=== PATIENT | male | born 1995 | race Caucasian/White ===

== ENCOUNTER 2017-03-05 19:44 | Emergency (ER) | payer SELFPAY ==
[~2017-03-05] VITALS: Ht 175.3 cm; Wt 88.5 kg
[2017-03-05 19:45] VITALS: BP 111/78
[2017-03-05] MEDS ORDERED: ORPHENADRINE CITRATE 60 MG/2 ML VIAL. IM ONE (20:00)
[2017-03-05] MEDS ORDERED: KETOROLAC 60 MG/2 ML VIAL. IM ONE (20:00)
[2017-03-05] MEDS ORDERED: CYCL5TAB PO (20:11)
[2017-03-05] MEDS ORDERED: NAPR375T3 PO (20:11)
--- NOTE | 2017-03-05 20:12 | PHYS DOC ---
Adult General Chief Complaint Chief Complaint: BACK PAIN OR INJURY HPI HPI Patient is a 21-year-old male who has been experiencing some mild low back pain for a couple days, he was doing laundry today and sneeze strongly and then had sudden onset of low back pain and muscle spasm. No direct trauma. Patient denies any fevers, chills, vomiting, retention or incontinence. No signs to. Pain is worse with movement or palpation. Review of Systems Review of Systems Constitutional: Denies fever or chills [] HENT: Denies nasal congestion or sore throat [] Respiratory: Denies cough or shortness of breath [] Cardiovascular: No chest pain GI: Denies abdominal pain, nausea, vomiting, incontinence : Incontinence or retention Musculoskeletal: Bilateral low back pain Integument: Denies rash or skin lesions [] Neurologic: Denies headache, focal weakness or sensory changes [] Physical Exam Physical Exam Constitutional: Well developed, well nourished, no acute distress, non-toxic appearance. [] HENT: Normocephalic, atraumatic, Eyes: EOMI, conjunctiva normal, no discharge. [] Neck: Normal range of motion, trachea midline] Cardiovascular: Normal perfusion, no signs of vascular insufficiency Lungs & Thorax: No tachypnea Abdomen: Bowel sounds normal, soft, no tenderness, Skin: Warm, dry, no erythema, no rash. [] Back: Diffuse tenderness to palpation in the low back with associated muscle spasm. Spine with normal alignment, no step-offs, no midline tenderness to palpation Extremities: No tenderness, ROM intact but limited in the lower extremity secondary to pain, no edema. Patient experiences the low back pain discomfort with active movement but that is markedly decreased or near sero-with passive movement of the lower extremities Neurologic: Alert and oriented X 3, normal motor function, normal gross sensory function, no focal deficits noted. [] Psychologic: Affect normal, judgement normal, mood normal. [] EKG EKG [] Radiology/Procedures Radiology/Procedures [] Course & Med Decision Making Course & Med Decision Making Pertinent Labs and Imaging studies reviewed. (See chart for details) Given the story and the lack of direct trauma, the edition the patient and the physical exam I do not believe that the time of this ED evaluation the patient is in need for imaging or inpatient evaluation. Patient is stable for outpatient treatment and follow-up. [] Dragon Disclaimer Dragon Disclaimer This chart was dictated in whole or in part using Voice Recognition software in a busy, high-work load, and often noisy Emergency Department environment. It may contain unintended and wholly unrecognized errors or omissions. Departure Departure: Impression: Primary Impression: Back pain Additional Impression: Spasm of back muscles Referrals: UNKNOWN (PCP) Patient Instructions: Back Pain, Adult Additional Instructions: Please follow-up with your doctor or one of the clinics in the list provided to you for recheck and reevaluation in 2-3 days. If your symptoms worsen or develop any new concerning symptoms (for example retention, incontinence, paralysis, weakness, numbness) please return to the ED immediately. Scripts Cyclobenzaprine Hcl (CYCLOBENZAPRINE HCL) 5 Mg Tablet 1 TAB PO TID for 5 Days, #15 TAB Prov: Karma QUINTANA MD 03/05/17 Naproxen (NAPROXEN) 375 Mg Tablet 1 TAB PO BID, #15 TAB 0 Refills Prov: Karma QUINTANA MD 03/05/17 Problem Qualifiers Karma QUINTANA MD Mar 05, 2017 20:12
== END 2017-03-05 20:30 | disposition home or self-care (01) ==
LOC: ER 19:44
DX: M54.5 Low back pain (principal); M62.830 Muscle spasm of back
CPT/HCPCS: 96372; 99284; J1885; J2360

== ENCOUNTER 2020-05-10 14:17 | Emergency (ER) | payer OTHER ==
[~2020-05-10] VITALS: Ht 175.3 cm; Wt 78.1 kg
[~2020-05-10 14:17] MED LIST: CYCL5TAB PO; NAPR-695 PO
[2020-05-10] MEDS ORDERED: HYDR30CR74 TP (15:28)
[2020-05-10] MEDS ORDERED: DIPH25CA58 PO (15:28)
[2020-05-10] MEDS ORDERED: PRED-220 PO (15:28)
--- NOTE | 2020-05-10 15:29 | PHYS DOC ---
Past History Past Medical History: No Pertinent History Past Surgical History: Other Additional Past Surgical Histo: WISDOM TOOTH; TUBES BILAT EARS Alcohol Use: Occasionally Drug Use: None General Adult EDM: Chief Complaint: SKIN RASH/ABSCESS HPI: HPI: 25 yo M who denies any significant past medical history presents the ED with complaints of pruritic rash on his left forearm going up to his arm, left lower chest and right antecubital fossa that started on Sunday after patient was outside cutting down trees, no relief with calamine lotion or benadryl. Unsure if he came in contact with poison ivory. No h/o anaphylaxis or angioedema. NKDA. Review of Systems: Review of Systems: Constitutional: Denies fever or chills Eyes: Denies change in visual acuity HENT: Denies nasal congestion or sore throat Respiratory: Denies cough or shortness of breath Cardiovascular: Denies chest pain or edema GI: Denies abdominal pain, nausea, vomiting, bloody stools or diarrhea : Denies dysuria Musculoskeletal: Denies back pain or joint pain Integument: Denies rash in mucous membranes Neurologic: Denies headache, focal weakness or sensory changes Endocrine: Denies polyuria or polydipsia Lymphatic: Denies swollen glands Psychiatric: Denies depression or anxiety Heart Score: Risk Factors: Risk Factors: DM, Current or recent (<one month) smoker, HTN, HLP, family history of CAD, obesity. Risk Scores: Score 0 - 3: 2.5% MACE over next 6 weeks - Discharge Home Score 4 - 6: 20.3% MACE over next 6 weeks - Admit for Clinical Observation Score 7 - 10: 72.7% MACE over next 6 weeks - Early Invasive Strategies Allergies: Allergies: Allergies Coded Allergies Type Severity Reaction Last Updated Verified No Known Drug Allergies 05/10/20 No Physical Exam: PE: Constitutional: Well developed, well nourished, no acute distress, non-toxic appearance. [] HENT: Normocephalic, atraumatic, bilateral external ears normal, oropharynx moist, no oral exudates, nose normal. []mallampati 1, no angioedema Eyes: EOMI, conjunctiva normal, no discharge. [] Neck: Normal range of motion, supple, no stridor. [] Cardiovascular:Heart rate regular rhythm, no murmur [] Lungs & Thorax: Bilateral breath sounds clear to auscultation [] Abdomen: Bowel sounds normal, soft, no tenderness, no masses, no pulsatile masses. [] Skin: Warm, dry, no erythema, excoriated erythematous prickly rash (no vesicles) over left forearm and right ac, similar rash over luq of abdomen Back: No tenderness, no CVA tenderness. [] Extremities: No tenderness, no cyanosis, no clubbing, ROM intact, no edema. [] Neurologic: Alert and oriented X 3, normal motor function, normal sensory fun ction, no focal deficits noted. [] Psychologic: Affect normal, judgement normal, mood normal. [] Current Patient Data: Vital Signs: Vital Signs Date Time Temp Pulse Resp B/P (MAP) Pulse Ox O2 Delivery O2 Flow Rate FiO2 05/10/20 14:30 98.2 86 18 108/77 (87) 98 Room Air EKG: EKG: [] Radiology/Procedures: Radiology/Procedures: [] Course & Med Decision Making: Course & Med Decision Making Pertinent Labs and Imaging studies reviewed. (See chart for details) Concern for contact dermatitis, likely poison ivory/oak exposure. Discouraged scratching/topical alcohol, but given the excoriation, will prescribe keflex, oral and topical steroids. Encouraged to continue antihistamines, calamine lotion, oatmeal baths. Strict ed return precautions for head/neck swelling, difficulties breathing, worsening rash or fever. Encouraged urgent outpatient follow-up with PMD. Life-threatening processes were considered but are low suspicion at this time, given history and physical exam. Pt was educated on all prescription medications and adverse effects. All patient's questions were answered and pt was stable at time of discharge. Life/limb-threatening differential includes but is not limited to, erythema multiforme, white-kaushik syndrome, toxic epidermal necrolysis, staphylococcal scalded skin syndrome, necrotizing fasciitis/myositis/cellulitis, purpura fulminans, heparin or warfarin induced skin necrosis, drug rash, disseminated intravascular coagulation, disseminated gonococcal disease, vasculitis, septicemia, petechial disorder or coagulopathy, viral exanthem, Kawasaki's disease. I spoken with the patient and her caregivers. I explained the patient's condition, diagnoses and treatment plan based on the information available to me at this time. I have answered the patient and her caregiver's questions and addressed any concerns. The patient and her caregivers have a good understanding of patient's diagnosis, condition and treatment plan as can be expected at this point. Vital signs have been stable. Patient's condition is stable and appropriate for discharge from the emergency department. Patient will pursue further outpatient evaluation with primary care physician or other designated or consulting physician as outlined in the discharge in structions. The patient and/or caregivers are agreeable to this plan of care and follow-up instructions have been explained in detail. The patient and/or caregivers have received these instructions in written form and have expressed an understanding of the discharge instructions. The patient and/or caregivers are aware that any significant change of condition or worsening of symptoms should prompt immediate return to this or the closest emergency department or call to 911. Ricardo Disclaimer: Ricardo Disclaimer: This electronic medical record was generated, in whole or in part, using a voice recognition dictation system. Departure Departure: Impression: Primary Impression: Rash Additional Impression: Contact dermatitis Disposition: HOME/RESIDENCE PRIOR TO ADM Condition: STABLE Referrals: JEREMY DORANTES (PCP) Patient Instructions: Contact Dermatitis, Poison Ivory, Rash Additional Instructions: EMERGENCY DEPARTMENT GENERAL DISCHARGE INSTRUCTIONS Thank you for coming to [facility] (ED) today and trusting us with you care. We trust that you had a positivie experience in our Emergency Department. If you wish to speak to the department management, you may call the director at [phone]. YOUR FOLLOW UP INSTRUCTIONS ARE FOLLOWS: 1. Do you have a private Doctor? If you do not have a private doctor, please ask for a resource list of physicians or clinics that may be able to assist you with follow up care. 2. The Emergency Physician has interpreted your x-rays. The X-Ray specialist will also review them. If there is a change in the findings, you will be notified in 48 hours when at all possible. 3. A lab test or culture has been done, your results will be reviewed and you will be notified if you need a change in treatment. ADDITIONAL INSTRUCTIONS AND INFORMATION: 1. Your care today has been supervised by a physician who is specially trained in emergency care. Many problems require more than one evaluation for a complete diagnosis and treatment. We recommend that you schedule your follow up appointment as recommended to ensure complete treatment of you illness or injury. If you are unable to obtain follow up care and continue to have a problem, or if your condition worsens, we recommend that you return to the ED. 2. We are not able to safely determine your condition over the phone nor are we able to give sound medical advice over the phone. For these safety reasons, if you call for medical advice we will ask you to come to the ED for further evaluation. 3. If you have any questions regarding these discharge instructions please call the ED at [phone]. SAFETY INFORMATION: In the interest of safety, wellness, and injury prevention; we encourage you to wear your sealbelt, if you smoke; quite smoking, and we encourage family to use a protective helmet for bicycling and other sporting events that present an increased risk for head injury. IF YOUR SYMPTOMS WORSEN OR NEW SYMPTOMS DEVELOP, OR YOU HAVE CONCERNS ABOUT YOUR CONDITION; OR IF YOUR CONDITION WORSENS WHILE YOU ARE WAITING FOR YOUR FOLLOW UP APPOINTMENT; EITHER CONTACT YOUR PRIMARY CARE DOCTOR, THE PHYSICIAN WHOSE NAME AND NUMBER YOU WERE GIVEN, OR RETURN TO THE ED IMMEDIATELY. Scripts Hydrocortisone (Hydrocortisone) 30 Gm Cream.appl 1 DAMARIS TP QID for itching for 7 Days, #30 GM 0 Refills Prov: DEBRA EDEN DO 05/10/20 Prednisone (PREDNISONE) 10 Mg Tablet 40 MG PO DAILY for contact dermatitis for 5 Days, #20 TAB 12 day taper: Take 4 tablets daily for 4 days, then take 3 tablets daily for 4 days, then take 2 tablets daily for 4 days and then take 1 tablet daily for 4 days Prov: DEBRA EDEN DO 05/10/20 Diphenhydramine Hcl (BENADRYL) 25 Mg Capsule 25 MG PO QID for itching for 5 Days, #20 CAP Prov: DEBRA EDEN DO 05/10/20 DEBRA EDEN DO May 10, 2020 15:28
[2020-05-10 15:38] VITALS: BP 114/66
== END 2020-05-10 15:37 | disposition home or self-care (01) ==
LOC: ER 14:17
DX: L25.9 Unspecified contact dermatitis, unspecified cause (principal)
CPT/HCPCS: 99283

== ENCOUNTER 2020-09-14 11:29 | Emergency (ER) | payer OTHER ==
[~2020-09-14] VITALS: Ht 175.3 cm; Wt 79.5 kg
[~2020-09-14 11:29] MED LIST changes: +DIPH25CA58 PO; +HYDR30CR74 TP; +PRED-220 PO
[2020-09-14 11:34] VITALS: BP 135/74
--- NOTE | 2020-09-14 12:38 | RAD ---
Study: XR LUMBAR SPINE 2-3V Indication: Low back pain. Comparison: 02/08/2012 Findings: Transitional lumbosacral anatomy. For the purposes of this report, the last disc space is designated S1-S2. Mild lumbar levocurvature with the apex at L4. Mild disc space narrowing at L4-L5 has not appreciably changed since 2011. No newly seen vertebral body height loss or malalignment. No advanced facet arth rosis. Impression: 1. Transitional lumbosacral anatomy as outlined above. 2. Redemonstrated and not significantly changed mild disc space narrowing at L4-L5. No acute radiogra phic abnormality of the lumbar spine. Electronically signed by: ADELINE MYLES MD (09/14/2020 12:36 PM) [id number]
[2020-09-14] MEDS ORDERED: NAPR-682 PO (13:34)
--- NOTE | 2020-09-14 13:34 | PHYS DOC ---
Past History Past Medical History: No Pertinent History Past Surgical History: Tonsillectomy, Other Additional Past Surgical Histo: WISDOM TOOTH; TUBES BILAT EARS Alcohol Use: Occasionally Drug Use: None General Adult EDM: Chief Complaint: BACK PAIN OR INJURY HPI: HPI: Patient is a 25 year old male with history of lower back problem, presented with lower back pain after he was doing some exercise routine this morning. He denied any bowel or bladder incontinence. He denied any weakness or numbness in the lower extremities. Back pain is worse with flexion or extension of the lower back. Review of Systems: Review of Systems: Constitutional: Denies fever or chills Eyes: Denies change in visual acuity HENT: Denies nasal congestion or sore throat Respiratory: Denies cough or shortness of breath Cardiovascular: Denies chest pain or edema GI: Denies abdominal pain, nausea, vomiting, bloody stools or diarrhea : Denies dysuria Musculoskeletal: Positive for lower back pain Integument: Denies rash Neurologic: Denies headache, focal weakness or sensory changes Endocrine: Denies polyuria or polydipsia Lymphatic: Denies swollen glands Psychiatric: Denies depression or anxiety Current Medications: Current Meds: Current Medications Medications (Trade) Dose Ordered Sig/Denise Start Time Stop Time Status Last Admin Dose Admin Ketorolac Tromethamine (Toradol Im) 60 mg 1X ONCE 09/14/20 13:30 09/14/20 13:31 UNV Orphenadrine Citrate (Norflex) 60 mg 1X ONCE 09/14/20 13:30 09/14/20 13:31 UNV Allergies: Allergies: Allergies Coded Allergies Type Severity Reaction Last Updated Verified No Known Drug Allergies 05/10/20 No Physical Exam: PE: Constitutional: Well developed, well nourished, no acute distress, non-toxic appearance. [] HENT: Normocephalic, atraumatic, bilateral external ears normal, oropharynx moist, no oral exudates, nose normal. [] Eyes: PERRLA, EOMI, conjunctiva normal, no discharge. [] Neck: Normal range of motion, no tenderness, supple, no stridor. [] Cardiovascular:Heart rate regular rhythm, no murmur [] Lungs & Thorax: Bilateral breath sounds clear to auscultation [] Abdomen: Bowel sounds normal, soft, no tenderness, no masses, no pulsatile masses. [] Skin: Warm, dry, no erythema, no rash. [] Back: No tenderness, no CVA tenderness. [] Extremities: No tenderness, no cyanosis, no clubbing, ROM intact, no edema. [] Neurologic: Alert and oriented X 3, normal motor function, normal sensory function, no focal deficits noted. [] Psychologic: Affect normal, judgement normal, mood normal. [] Current Patient Data: Vital Signs: Vital Signs Date Time Temp Pulse Resp B/P (MAP) Pulse Ox O2 Delivery O2 Flow Rate FiO2 09/14/20 11:34 97.9 97 16 135/74 (94 97 Room Air EKG: EKG: [] Radiology/Procedures: Radiology/Procedures: [][place] [address] IMAGING REPORT Signed PATIENT: KELBY SPENCE AACCOUNT: [id number] : 1995 LOCATION: ER AGE: 25 SEX: M EXAM STATUS: PRE ER ORD. PHYSICIAN: ANASTASIA MAJANO DO REASON: lower back pain, injury during PT today PROCEDURE: LUMBAR SPINE 2-3V Study: XR LUMBAR SPINE 2-3V Indication: Low back pain. Comparison: 02/08/2012 Findings: Transitional lumbosacral anatomy. For the purposes of this report, the last disc space is designated S1-S2. Mild lumbar levocurvature with the apex at L4. Mild disc space narrowing at L4- L5 has not appreciably changed since 2011. No newly seen vertebral body height loss or malalignment. No advanced facet arthrosis. Impression: 1. Transitional lumbosacral anatomy as outlined above. 2. Redemonstrated and not significantly changed mild disc space narrowing at L4- L5. No acute radiographic abnormality of the lumbar spine. Electronically signed by: ADELINE MYLES MD (09/14/2020 12:36 PM) [id number] DICTATED AND SIGNED BY: ADELINE MYLES MD DATE: 09/14/20 1233 CC: PCP,UNKNOWN; ANASTASIA MAJANO DO ~MTH0 0 Heart Score: Risk Factors: Risk Factors: DM, Current or recent (<one month) smoker, HTN, HLP, family histo ry of CAD, obesity. Risk Scores: Score 0 - 3: 2.5% MACE over next 6 weeks - Discharge Home Score 4 - 6: 20.3% MACE over next 6 weeks - Admit for Clinical Observation Score 7 - 10: 72.7% MACE over next 6 weeks - Early Invasive Strategies Course & Med Decision Making: Course & Med Decision Making Pertinent Labs and Imaging studies reviewed. (See chart for details) xray of lumbar spine did not show any acute injury. Patient was able to get up to the bathroom without any problem. Will discharge him home with NSAIDS and muscle relaxer, told to follow up with PCP for MRI of lower back if he continues to have problem. Dragon Disclaimer: [facility] Disclaimer: This electronic medical record was generated, in whole or in part, using a voice recognition dictation system. Departure Departure: Impression: Primary Impression: Lower back pain Disposition: 01 DC HOME SELF CARE/HOMELESS Condition: STABLE Referrals: PCP,UNKNOWN (PCP) Follow up with your doctor as needed next week Patient Instructions: Back Pain, Adult Additional Instructions: Thank you for visiting our Emergency Department. We appreciate you trusting us with your care. If any additional problems come up don't hesitate to return to visit us. Please follow up with your primary care provider so they can plan additional care if needed and know about the problem that you had. If symptoms worsen come back to the Emergency Department. Any concerning symptoms that start such as chest pain, shortness of air, weakness or numbness on one side of the body, running high fevers or any other concerning symptoms return to the ER. Scripts Cyclobenzaprine Hcl (CYCLOBENZAPRINE HCL) 10 Mg Tablet 1 TAB PO TID PRN for MUSCLE SPASMS, #15 TAB Prov: ANASTASIA MAJANO DO 09/14/20 Naproxen Sodium (ANAPROX DS) 550 Mg Tablet 1 TAB PO BID PRN for PAIN for 15 Days, #30 TAB 0 Refills Prov: ANASTASIA MAJANO DO 09/14/20 ANASTASIA MAJANO DO Sep 14, 2020 13:34
[2020-09-14] MEDS ORDERED: CYCL-331 PO (13:38)
[2020-09-14] MEDS ORDERED: ORPHENADRINE CITRATE 60 MG/2 ML VIAL. IM ONE (13:45)
[2020-09-14] MEDS ORDERED: KETOROLAC 60 MG/2 ML VIAL. IM ONE (13:45)
== END 2020-09-14 13:49 | disposition home or self-care (01) ==
LOC: ER 11:29
DX: M54.5 Low back pain (principal)
CPT/HCPCS: 72100; 96372; 99284; J1885; J2360

== ENCOUNTER 2021-03-31 11:02 | Emergency (ER) | payer OTHER ==
[~2021-03-31] VITALS: Ht 175.3 cm; Wt 79.5 kg
[~2021-03-31 11:02] MED LIST changes: +CYCL-331 PO; +NAPR-682 PO
[2021-03-31 11:43] VITALS: BP 123/81
--- NOTE | 2021-03-31 12:31 | RAD ---
EXAM: Left foot, 3 views. HISTORY: Second toe injury. COMPARISON: None. FINDINGS: 3 views of the left foot are obtained. There is no acute fracture, dislocation or subluxati on. There is a tiny ossicle or calcification adjacent to the distal aspect of the first proximal phal anx. IMPRESSION: No acute osseous finding. Electronically signed by: Ellen Bradford MD (03/31/2021 12:29 PM) [id number]
--- NOTE | 2021-03-31 12:41 | PHYS DOC ---
Past History Past Medical History: No Pertinent History (TAMMY DELEON APRN) Past Surgical History: Tonsillectomy, Other Additional Past Surgical Histo: WISDOM TOOTH; TUBES BILAT EARS (TAMMY DELEON APRN) Alcohol Use: Occasionally Drug Use: None (TAMMY DELEON APRN) Adult General Chief Complaint Chief Complaint: TOE PROBLEM [facility] HPI Patient is a 25-year-old patient presents with left toe pain. Patient reports he has been on the boat 2 days ago, when he had slipped on the rear part of that, with his toes hyper extending and concerned and discomfort in his toes following that. States he noticed bruising this morning. He became concerned and came to the emergency room for evaluation. States he has been walking on it, however has had some discomfort anytime he takes steps. He has not take any medications for this at all. Denies any paresthesia. Denies any additional complaints (TAMMY DELEON APRN) Review of Systems Review of Systems Constitutional: Denies fever or chills [] Cardiovascular: No additional information not addressed in HPI [] Musculoskeletal: Denies back pain or joint pain [] complains of pain to left foot, second and third digit. Integument: Denies rash or skin lesions [] states bruising to base of left foot, second and third toe Neurologic: Denies headache, focal weakness or sensory changes [] denies any paresthesias All other systems were reviewed and found to be within normal limits, except as documented in this note. (TAMMY DELEON APRN) Allergies Allergies Allergies Coded Allergies Type Severity Reaction Last Updated Verified No Known Drug Allergies 05/10/20 No (TAMMY DELEON APRN) Physical Exam Physical Exam Constitutional: Well developed, well nourished, no acute distress, non-toxic appearance. [] Skin: Warm, dry, no erythema, no rash. [] Minimal bruising noted to base of second and third digit, left foot Extremities: No tenderness, no cyanosis, no clubbing, ROM intact, no edema. [] Full range of motion noted to toes, brisk capillary refill. Sensation intact to toes. Full range of motion to ankle. Neurologic: Alert and oriented X 3, normal motor function, normal sensory function, no focal deficits noted. [] Psychologic: Affect normal, judgement normal, mood normal. [] (TAMMY DELEON APRN) Current Patient Data Vital Signs Vital Signs Date Time Temp Pulse Resp B/P (MAP) Pulse Ox O2 Delivery O2 Flow Rate FiO2 03/31/21 11:43 98.3 71 14 123/81 97 Room Air (TAMMY DELEON APRN) EKG EKG [] (TAMMY DELEON APRN) Radiology/Procedures Radiology/Procedures PATIENT: KELBY SPENCE AACCOUNT: [id number]#: [id number] : 1995 LOCATION: ER AGE: 25 SEX: M EXAM STATUS: PRE ER ORD. PHYSICIAN: LILLIE HAYDEN DO REASON: 2nd digit injury left foot. PROCEDURE: FOOT LEFT 3V EXAM: Left foot, 3 views. HISTORY: Second toe injury. COMPARISON: None. FINDINGS: 3 views of the left foot are obtained. There is no acute fracture, dislocation or subluxation. There is a tiny ossicle or calcification adjacent to the distal aspect of the first proximal phalanx. IMPRESSION: No acute osseous finding. Electronically signed by: Ellen Heredia MD (03/31/2021 12:29 PM) [id number] DICTATED AND SIGNED BY: ELLEN HEREDIA MD DATE: 03/31/21 1228 CC: LILLIE HAYDEN DO; JEREMY DORANTES ~MTH0 0 [] (TAMMY DELEON APRN) Heart Score C/O Chest Pain: N/A Risk Factors: Risk Factors: DM, Current or recent (<one month) smoker, HTN, HLP, family history of CAD, obesity. Risk Scores: Risk Factors: DM, Current or recent (<one month) smoker, HTN, HLP, family history of CAD, obesity. (TAMMY DELEON APRN) Course & Med Decision Making Course & Med Decision Making Pertinent Labs and Imaging studies reviewed. (See chart for details) [] Given imaging results, likely hyperextension of toe, causing the bruising. No fracture noted. Will recommend a postop shoe or similar, continued NSAIDs. Patient with full range of motion, no acute fracture noted at this time. Will recommend follow-up primary as needed. Patient does report he has a hard soled shoe at home he will wear (TAMMY DELEON APRN) Course & Med Decision Making I was the Attending physician on the above date of service of this patient. This patient was evaluated, examined, treated, and dispositioned from the emergency department by the mid-level practitioner. Although I was working at the time , no assistance was requested. Electronically signed, Lillie Hayden DO (LILLIE HAYDEN DO) Ricardo Disclaimer Dragon Disclaimer This electronic medical record was generated, in whole or in part, using a voice recognition dictation system. (TAMMY DELEON APRN) Departure Departure: Impression: Primary Impression: Contusion of left foot including toes Disposition: HOME / SELF CARE / HOMELESS Condition: GOOD Referrals: JEREMY DORANTES (PCP) Patient Instructions: Foot Contusion Additional Instructions: As discussed, you may take Tylenol or ibuprofen as needed for discomfort. Apply ice as needed. You may want to consider using a hard soled shoe for the next few days to help decrease the flexion in your toes, which may worsen the discomfort and the bruising on the bone. Follow-up with your primary care provider as needed for anything else. Problem Qualifiers Primary Impression: Contusion of left foot including toes Encounter type: initial encounter Qualified Codes: S90.32XA - Contusion of left foot, initial encounter; S90.122A - Contusion of left lesser toe(s) without damage to nail, initial encounter TAMMY DELEON APRN Mar 31, 2021 12:41 LILLIE HAYDEN DO Apr 02, 2021 06:05
== END 2021-03-31 12:46 | disposition home or self-care (01) ==
LOC: ER 11:02
DX: S90.122A Contusion of left lesser toe(s) without damage to nail, initial encounter (principal); W01.0XXA Fall on same level from slipping, tripping and stumbling without subsequent striking against object, initial encounter; Y93.89 Activity, other specified; Y92.89 Other specified places as the place of occurrence of the external cause; Y99.8 Other external cause status
CPT/HCPCS: 73630; 99283

== ENCOUNTER 2021-04-24 11:15 | Emergency (ER) | payer OTHER ==
[~2021-04-24] VITALS: Ht 175.3 cm; Wt 86.7 kg
[2021-04-24] MEDS ORDERED: ORPHENADRINE CITRATE 60 MG/2 ML VIAL. IM ONE (11:30)
[2021-04-24] MEDS ORDERED: KETOROLAC 60 MG/2 ML VIAL. IM ONE (11:30)
[2021-04-24 11:45] VITALS: BP 119/75
--- NOTE | 2021-04-24 11:48 | RAD ---
XR LUMBAR SPINE 2-3V History: Low back pain Comparison: 09/24/2020 Technique: 3 views of the lumbar spine. Findings: Transitional lumbosacral anatomy. Rudimentary S1-S2 disc space with partial lumbarization of the S1 v ertebral body which is somewhat rectangular in shape and has a lumbarized left transverse process. There is no evidence of fracture. Alignment is normal. No destructive osseous lesions are seen. No significant facet disease. Disc space narrowing at L4-L5, unchanged from comparison. Sacroiliac joints are unremarkable. Soft tissues are unremarkable. IMPRESSION: 1. 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 2. Mild disc space narrowing L5-S1, not significantly changed. Electronically signed by: Taj Soriano MD (04/24/2021 11:46 AM) [id number]
--- NOTE | 2021-04-24 11:53 | PHYS DOC ---
Past History Past Medical History: No Pertinent History (LUBA CANALES APRN) Past Surgical History: Tonsillectomy, Other Additional Past Surgical Histo: WISDOM TOOTH; TUBES BILAT EARS (LUBA CANALES APRN) Alcohol Use: Occasionally Drug Use: None (LUBA CANALES APRN) General Adult EDM: Chief Complaint: BACK PAIN OR INJURY HPI: HPI: Patient is a 18-year-old male being seen in the ER for any low back pain. Patient states he has a history of L4 and L5 narrowing. He denies any recent injury. He rates his pain 3 out of 10. It is worse with movement. With movement 7 out of 10. No treatment prior to arrival. Patient is able to bear weight and ambulate with a steady gait. Patient denies any loss of bowel or bladder, saddle anesthesias. He states that occasionally the pain radiates down his right leg and he has some right leg tingling but no numbness. (LUBA CANALES APRN) Review of Systems: Review of Systems: 14 body systems of the review of systems have been reviewed. See HPI for pertinent positive and negative responses, otherwise all other systems are negative, nonpertinent or noncontributory (LUBA CANALES APRN) Current Medications: Current Meds: Current Medications Medications (Trade) Dose Ordered Sig/Denise Start Time Stop Time Status Last Admin Dose Admin Ketorolac Tromethamine (Toradol Im) 60 mg 1X ONCE 04/24/21 11:30 04/24/21 11:32 DC Orphenadrine Citrate (Norflex) 60 mg 1X ONCE 04/24/21 11:30 04/24/21 11:32 DC (LUBA CANALES APRN) Allergies: Allergies: Allergies Coded Allergies Type Severity Reaction Last Updated Verified No Known Drug Allergies 05/10/20 No (LUBA CANALES APRN) Physical Exam: PE: Constitutional: Well developed, well nourished, no acute distress, non-toxic appearance. [] HENT: Normocephalic, atraumatic Eyes: PERRL, EOMI, conjunctiva normal, no discharge. [] Neck: Normal range of motion, no bony spinal cervical tenderness, no crepitius, no step offs, no deformities, supple, no stridor. [] Cardiovascular:Normal peripheral perfusion, Lungs & Thorax: Normal work of breathing, no tachypnea Abdomen: Soft Skin: Warm, dry, no erythema, no rash. [] Back: No bony spinal tenderness, full range of motion, no crepitius, no step offs Extremities: No tenderness, no cyanosis, no clubbing, ROM intact, no edema. [] Neurologic: Alert and oriented X 3, normal motor function, normal sensory function, no focal deficits noted. [] Psychologic: Affect normal, judgement normal, mood normal. [] (LUBA CANALES APRN) EKG: EKG: [] (LUBA CANALES APRN) Radiology/Procedures: Radiology/Procedures: PROCEDURE: LUMBAR SPINE 2-3V XR LUMBAR SPINE 2-3V History: Low back pain Comparison: 09/24/2020 Technique: 3 views of the lumbar spine. Findings: Transitional lumbosacral anatomy. Rudimentary S1-S2 disc space with partial lumbarization of the S1 vertebral body which is somewhat rectangular in shape and has a lumbarized left transverse process. There is no evidence of fracture. Alignment is normal. No destructive osseous lesions are seen. No significant facet disease. Disc space narrowing at L4-L5, unchanged from comparison. Sacroiliac joints are unremarkable. Soft tissues are unremarkable. IMPRESSION: 1. 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 2. Mild disc space narrowing L5-S1, not significantly changed. Electronically signed by: Taj Zarate MD (04/24/2021 11:46 AM) [id number] DICTATED AND SIGNED BY: TAJ ZARATE MD DATE: 04/24/21 1142 CC: JEREMY DORANTES; LUBA CANALES APRN ~MTH0 0 [] (LUBA CANALES APRN) Heart Score: C/O Chest Pain: No Risk Factors: Risk Factors: DM, Current or recent (<one month) smoker, HTN, HLP, family history of CAD, obesity. Risk Scores: Score 0 - 3: 2.5% MACE over next 6 weeks - Discharge Home Score 4 - 6: 20.3% MACE over next 6 weeks - Admit for Clinical Observation Score 7 - 10: 72.7% MACE over next 6 weeks - Early Invasive Strategies (LUBA CANALES APRN) Course & Med Decision Making: Course & Med Decision Making Pertinent Labs and Imaging studies reviewed. (See chart for details) [] Patient is a 26-year-old male with a history of L4/L5 narrowing complaining of medial low back pain. Patient had no new injury. Patient believes that he is having muscle spasms. Lumbar spine was imaged in the ER and it showed no acute findings-did show narrowing of L5-S1 similar to previous study. Patient treated with anti-inflammatory and muscle relaxer. Patient to be discharged home with muscle relaxer. He will be advised to take anti-inflammatory medications such as ibuprofen and naproxen at home. Patient advised to follow- up with primary care provider. I discussed with patient all findings and diagnostic testing as well as the need to follow-up with PCP for further evaluation and treatment or return to the ER if any new or worsening symptoms. Strict return precautions were also discussed at length. Patient voiced understanding and agreement with the plan. Patient is hemodynamically stable at the time of disposition. (LUBA CANALES APRN) Course & Med Decision Making I was the Attending physician on the above date of service of this patient. This patient was evaluated, examined, treated, and dispositioned from the emergency department by the mid-level practitioner. Although I was working at the time , no assistance was requested. Electronically signed, Lillie Hayden DO (LILLIE HAYDEN DO) Ricardo Disclaimer: Ricardo Disclaimer: This electronic medical record was generated, in whole or in part, using a voice recognition dictation system. (LUBA CANALES APRN) Departure Departure: Impression: Primary Impression: Back pain Qualified Codes: M54.41 - Lumbago with sciatica, right side; G89.29 - Other chronic pain Disposition: 01 HOME / SELF CARE / HOMELESS Condition: GOOD Referrals: JEREMY DORANTES (PCP) Patient Instructions: Back Pain, Adult Additional Instructions: You were seen in the ER today for low back pain. The imaging of your spine showed narrowing of your L5-S1 similar to a previous study. You were treated in the ER with anti-inflammatory medication and a muscle relaxer. Please continue to take anti-inflammatory medications at home such as ibuprofen and naproxen. You are being discharged home with a muscle relaxer. Please take this as directed. This medication may cause drowsiness so do not take any need to be alert and do not take with alcohol. Follow-up with your primary care provider tomorrow regarding your ER visit. If you develop worsening of your pain, loss of bowel or bladder, numbness or tingling in your groin or extremities, inability to bear weight or ambulate please return to the ER. EMERGENCY DEPARTMENT GENERAL DISCHARGE INSTRUCTIONS Thank you for coming to [facility] (ED) today and trusting us with you care. We trust that you had a positivie experience in our Emergency Department. If you wish to speak to the department management, you may call the director at [phone]. YOUR FOLLOW UP INSTRUCTIONS ARE FOLLOWS: 1. Do you have a private Doctor? If you do not have a private doctor, please ask for a resource list of physicians or clinics that may be able to assist you with follow up care. 2. The Emergency Physician has interpreted your x-rays. The X-Ray specialist will also review them. If there is a change in the findings, you will be notified in 48 hours when at all possible. 3. A lab test or culture has been done, your results will be reviewed and you will be notified if you need a change in treatment. ADDITIONAL INSTRUCTIONS AND INFORMATION: 1. Your care today has been supervised by a physician who is specially trained in emergency care. Many problems require more than one evaluation for a complete diagnosis and treatment. We recommend that you schedule your follow up appointment as recommended to ensure complete treatment of you illness or injury. If you are unable to obtain follow up care and continue to have a problem, or if your condition worsens, we recommend that you return to the ED. 2. We are not able to safely determine your condition over the phone nor are we able to give sound medical advice over the phone. For these safety reasons, if you call for medical advice we will ask you to come to the ED for further evaluation. 3. If you have any questions regarding these discharge instructions please call the ED at [phone]. SAFETY INFORMATION: In the interest of safety, wellness, and injury prevention; we encourage you to wear your sealbelt, if you smoke; quite smoking, and we encourage family to use a protective helmet for bicycling and other sporting events that present an increased risk for head injury. IF YOUR SYMPTOMS WORSEN OR NEW SYMPTOMS DEVELOP, OR YOU HAVE CONCERNS ABOUT YOUR CONDITION; OR IF YOUR CONDITION WORSENS WHILE YOU ARE WAITING FOR YOUR FOLLOW UP APPOINTMENT; EITHER CONTACT YOUR PRIMARY CARE DOCTOR, THE PHYSICIAN WHOSE NAME AND NUMBER YOU WERE GIVEN, OR RETURN TO THE ED IMMEDIATELY. Scripts Cyclobenzaprine Hcl (CYCLOBENZAPRINE HCL) 10 Mg Tablet 1 TAB PO TID PRN PRN for PAIN for 4 Days, #12 TAB 0 Refills Prov: LUBA CANALES APRN 04/24/21 LUBA CANALES APRN Apr 24, 2021 11:53 LILLIE HAYDEN DO Apr 25, 2021 06:51
[2021-04-24] MEDS ORDERED: CYCL-331 PO (11:57)
== END 2021-04-24 12:04 | disposition home or self-care (01) ==
LOC: ER 11:15
DX: M54.41 Lumbago with sciatica, right side (principal); G89.29 Other chronic pain
CPT/HCPCS: 72100; 96372; 99284; J1885; J2360